=== PATIENT | female | born 1930 | race Caucasian/White ===

== ENCOUNTER 2016-12-28 15:35 | Emergency (ER) | payer MEDICARE ==
[~2016-12-28] VITALS: Ht 165.1 cm; Wt 66.2 kg
[2016-12-28 15:43] VITALS: BP 185/81
--- NOTE | 2016-12-28 15:52 | PHYS DOC ---
Past Medical History Past Medical History: No Pertinent History Past Surgical History: No Surgical History Alcohol Use: None Drug Use: None Adult General Chief Complaint Chief Complaint: UPPER EXTREMITY INJURY HPI HPI Patient is a 86 year old female presents to the emergency department with complaints of left humerus pain. Patient states that she misstepped and fell down 3 steps landing on her left side with her left arm tucked in to her side. She states she had immediate onset the left upper extremity pain. She states incident occurred approximately 30 minutes prior to arrival. Patient denies headache, lightheadedness, neck pain, back pain, chest pain, abdominal pain. She was ambulatory into the emergency department without apparent discomfort or pain of the lower extremity's. Review of Systems Review of Systems Constitutional: Denies fever or chills [] Eyes: Denies change in visual acuity, redness, or eye pain [] Respiratory: Denies cough or shortness of breath [] Cardiovascular: No additional information not addressed in HPI [] GI: Denies abdominal pain, nausea, vomiting, bloody stools or diarrhea [] : Denies dysuria or hematuria [] Musculoskeletal: Left upper extremity pain Integument: Denies rash or skin lesions [] Neurologic: Denies headache, focal weakness or sensory changes [] Endocrine: Denies polyuria or polydipsia [] Current Medications Current Medications Current Medications Medications (Trade) Dose Ordered Sig/Popeye Start Time Stop Time Status Last Admin Dose Admin Acetaminophen (Tylenol) 500 mg 1X ONCE 12/28/16 16:00 12/28/16 16:01 DC 12/28/16 15:50 500 MG Allergies Allergies Allergies Coded Allergies Type Severity Reaction Last Updated Verified No Known Drug Allergies 12/28/16 No Physical Exam Physical Exam Constitutional: Well developed, well nourished, no acute distress, non-toxic appearance. [] HENT: Normocephalic, atraumatic Eyes: PERRLA, EOMI Neck: Normal range of motion, no midline or paracervical tenderness, supple, Cardiovascular:Heart rate regular rhythm, no murmur [] Lungs & Thorax: Bilateral breath sounds clear to auscultation [] Abdomen: Bowel sounds normal, soft, no tenderness, no masses, no pulsatile masses. [] Skin: Warm, dry, no erythema, no rash. [] Back: No tenderness, no CVA tenderness. [] Extremities: Left upper extremity,anterior ecchymosis, mild tenderness palpated over the deltoid in the proximal humerus. She has no tenderness to palpate over the left clavicle area and left elbow exam unremarkable. Neurovascular intact distally. She has a superficial abrasion to the MCP of the second finger on the left hand. Full range of motion all digits without difficulty. Neurovascular intact distally. No bony tenderness on exam of the forearm or hand.. Neurologic: Alert and oriented X 3, normal motor function, normal sensory function, no focal deficits noted. [] Psychologic: Affect normal, judgement normal, mood normal. [] Current Patient Data Vital Signs Vital Signs Date Time Temp Pulse Resp B/P (MAP) Pulse Ox O2 Delivery O2 Flow Rate FiO2 12/28/16 15:43 97.5 79 16 97 Room Air 97.5 EKG EKG [] Radiology/Procedures Radiology/Procedures [][facility] [address] [place] [address] IMAGING REPORT Signed PATIENT: DONY CHANDLER ACCOUNT: [id number] : 1930 LOCATION: ER AGE: 86 SEX: F EXAM STATUS: PRE ER ORD. PHYSICIAN: DERRICK BEAN APRN REASON: fall, pain PROCEDURE: HUMERUS LEFT Left humerus, 2 views, 12/28/2016: History: Fall, pain The bony structures are demineralized. There is an impacted fracture of the left humeral neck. There is no significant displacement. The distal humerus is unremarkable. No shoulder dislocation is evident. IMPRESSION: 1. Demineralization. 2. Impacted fracture of the left humeral neck. DICTATED and SIGNED BY: JORDAN BAUER MD DATE: 12/28/16 1602 CC: DERRICK BEAN APRN ~ Course & Med Decision Making Course & Med Decision Making Patient will be placed in a sling and swath, upper left. Neurovascular intact distally. Pertinent Labs and Imaging studies reviewed. (See chart for details) [] Dragon Disclaimer Dragon Disclaimer This electronic medical record was generated, in whole or in part, using a voice recognition dictation system. Departure Departure Impression: Primary Impression: Fracture, humerus, neck Disposition: 01 HOME, SELF-CARE Condition: STABLE Referrals: KAITLIN MAY II, MD Patient Instructions: Humerus Fracture, Treated with Immobilization, RICE - Routine Care for Injuries Additional Instructions: Return to the emergency Department for new symptoms or concerns or worsening of current condition. Scripts Acetaminophen With Codeine (TYLENOL WITH CODEINE #3 TABLET) 1 Each Tablet 1 TAB PO PRN Q6HRS Y for PAIN, #20 TAB Prov: DERRICK BEAN APRN 12/28/16 Problem Qualifiers Primary Impression: Fracture, humerus, neck Encounter type: initial encounter Fracture type: closed Laterality: left Qualified Codes: S42.212A - Unspecified displaced fracture of surgical neck of left humerus, initial encounter for closed fracture DERRICK BEAN APRN Dec 28, 2016 15:52
[2016-12-28] MEDS ORDERED: ACETAMINOPHEN 500 MG TABLET PO ONE (16:00)
--- NOTE | 2016-12-28 16:06 | RAD ---
Left humerus, 2 views, 12/28/2016: History: Fall, pain The bony structures are demineralized. There is an impacted fracture of the left humeral neck. There is no significant displacement. The distal humerus is unremarkable. No shoulder dislocation is evident. IMPRESSION: 1. Demineralization. 2. Impacted fracture of the left humeral neck.
[2016-12-28] MEDS ORDERED: ACET-704 PO (16:11)
== END 2016-12-28 16:27 | disposition home or self-care (01) ==
LOC: ER 15:35
DX: S42.212A Unspecified displaced fracture of surgical neck of left humerus, initial encounter for closed fracture (principal); W10.9XXA Fall (on) (from) unspecified stairs and steps, initial encounter; Y93.89 Activity, other specified; Y92.89 Other specified places as the place of occurrence of the external cause; Y99.8 Other external cause status
CPT/HCPCS: 29240; 73060; 99284

== ENCOUNTER 2017-05-25 13:34 | Emergency (ER) | payer MEDICARE ==
[2017-05-25] MEDS: oxyCODONE/APAP 5/325 1 TAB TABLET PO (14:51)
== END 2017-05-25 16:32 | disposition home or self-care (01) ==
LOC: ER 13:34
DX: S32.028A Other fracture of second lumbar vertebra, initial encounter for closed fracture (principal); S32.038A Other fracture of third lumbar vertebra, initial encounter for closed fracture; W18.09XA Striking against other object with subsequent fall, initial encounter; Y93.89 Activity, other specified; Y99.8 Other external cause status; Y92.89 Other specified places as the place of occurrence of the external cause
CPT/HCPCS: 72131; 99284-25